=== PATIENT | female | born 1955 | race Caucasian/White ===

== ENCOUNTER 2017-10-21 10:34 | Day surgery (SDC) | payer MEDICAID ==
[2017-10-21] MEDS ORDERED: LIDOCAINE 1% MDV (10MG/ML) 20ML VIAL SQ ONE (10:35)
[2017-10-21] MEDS ORDERED: PROPOFOL 10 MG/ML VIAL IV ONE (10:35)
--- NOTE | 2017-10-22 13:10 | Operative Note ---
Dictated by Dr. Live Richardson DATE OF SURGERY: 10/21/2017 PROCEDURE: ESOPHAGOGASTRODUODENOSCOPY with biopsies. PREOPERATIVE DIAGNOSIS: Dysphagia, diarrhea, epigastric pain. POSTOPERATIVE DIAGNOSIS: Gastritis, duodenitis, and diarrhea. PHYSICIAN: Jordan Hart DO ASSISTING PHYSICIAN: Live Richardson DO ANESTHESIA: Moderate sedation conducted by [place] anesthesia team. INDICATIONS: This is a 62-year-old female with chief complaint of upper pharyngeal swallowing difficulty as well as persistent diarrhea and epigastric pain with heartburn-like symptoms after eating with minimal response to proton pump inhibitor therapy. DESCRIPTION OF PROCEDURE: The patient was seen in the preoperative area where risks and benefits of both anesthesia and the procedure were discussed in detail and consent was signed for both. The patient was then moved to endoscopic area where blood pressure was taken and a timeout was conducted confirming her name, date of , procedure to be done, and allergies. This was agreed upon. The patient was then placed in the left lateral position where she was monitored by Anesthesia with oxygenation, telemetry, and placed under moderate sedation. Once sedated, the gastroscope was lubricated and inserted through the oropharynx where a bite block was then placed. The scope was advanced through the esophagus, stomach, and into the second portion of the duodenum. Duodenal biopsies were taken in the second portion and duodenal bulb. A small duodenal erosion was appreciated with mild duodenitis and patient also had mild gastritis. Retroflexed view was conducted and fluid was suctioned out but no abnormalities appreciated. The scope was then withdrawn to evaluate the GE junction. That showed no abnormalities and the esophagus did appear tortuous but there were no signs of stricture or difficulty advancing the scope. The scope was then withdrawn from the esophagus and procedure completed. The patient tolerated the procedure very well and moved to the postoperative area. There was minimal bleeding. FINDINGS: Gastritis, duodenitis with gastric and duodenal biopsies taken. RECOMMENDATIONS: Would await pathology. Would recommend that the patient continue her PPI and if symptoms continue to persist, will recommend outpatient followup. The patient also is due for a followup colonoscopy in 1 year and will need to schedule that soon. As always, thank you for allowing me to participate in the care of your patient. CC: MARIAA Sheppard
--- NOTE | 2017-10-22 13:20 | Operative Note ---
Dictated by Dr. Live Richardson DATE OF SURGERY: 10/21/2017 PROCEDURE: ESOPHAGOGASTRODUODENOSCOPY with biopsy. PREOPERATIVE DIAGNOSIS: Difficulty in swallowing, diarrhea, and epigastric pain. POSTOPERATIVE DIAGNOSIS: Duodenitis, gastritis, and diarrhea. PHYSICIAN: Jordan Hart DO ASSISING PHYSICIAN: Live Richardson DO ANESTHESIA: Moderate sedation, monitored by [place] anesthesia team. INDICATIONS: This is a 62-year-old female presenting with persistent diarrhea and epigastric pain as well as some difficulty with swallowing noted to be in the upper pharyngeal area. The patient was set up for an EGD to evaluate these symptoms. DESCRIPTION OF PROCEDURE: The patient was seen in the preoperative area where risks and benefits of the procedure and anesthesia were discussed in detail and consent was signed for both. The patient was then brought back to the endoscopy unit where a timeout was conducted confirming her name, date of , and procedure to be done as well as allergies. Blood pressure was taken and then the patient was placed in a left lateral position. A bite block was placed and the patient was put under moderate sedation where she was monitored by the anesthesia team with ECG, blood pressure, and pulse oximetry. The patient's head was tilted and a gastroscope that was thoroughly lubricated was advanced through the oropharynx into the esophagus, stomach, and second portion of the duodenum. Gastritis was appreciated as well as duodenitis and duodenal biopsies of the second portion and bulb were taken as well as gastric biopsies of the pylorus, antrum, and gastric body. The scope was then placed in a retroflexed view that did not visualize any abnormalities, and fluid was suctioned out. The GE junction was thoroughly evaluated with no abnormalities appreciated. The patient did have a somewhat tortuous esophagus but showed no signs of structuring and no difficulty advancing or retracting the scope. The procedure was then completed. The patient tolerated the procedure very well and was brought to the postoperative area. There was minimal bleeding. FINDINGS: Gastritis, duodenitis with gastric and duodenal biopsies. RECOMMENDATIONS: I recommend that the patient continue her PPI, await biopsy results, and outpatient followup if symptoms persist. The patient also will be due for a colonoscopy in approximately 1 year and recommend that she schedule this when she can. As always, thank you for allowing me to participate in the care of your patient. CC: MARIAA Sheppard
== END 2017-10-21 14:00 | disposition home or self-care (01) ==
LOC: HOP 10:34
PROVIDERS: ATTEND Internal Medicine Gastroenterology
DX: R13.10 Dysphagia, unspecified (principal); R19.7 Diarrhea, unspecified; R10.13 Epigastric pain; K29.70 Gastritis, unspecified, without bleeding; K29.80 Duodenitis without bleeding; J44.9 Chronic obstructive pulmonary disease, unspecified; J43.9 Emphysema, unspecified

== ENCOUNTER 2018-08-10 15:23 | Observation (INO) | payer MEDICAID ==
[2018-08-10] MEDS ORDERED: METHYLPREDNISOLONE PF 125MG/VIAL IVP ONE (15:35)
[2018-08-10] MEDS ORDERED: IPRATROPIUM/ALBUTEROL (0.5MG/3MG) NEB INH ONE (15:35)
--- NOTE | 2018-08-10 15:40 | Emergency Department Record ---
History of Present Illness - General Chief Complaint: Shortness of breath Stated Complaint: ANI Time Seen by Provider: 08/10/18 15:34 Source: Patient, Family Mode of Arrival: Ambulatory Limitations: No limitations - History of Present Illness Initial Comments: 63 yo female presents not feeling well since about mid last week. She is having progressive shortness of breath, cough, fatigue, and dyspnea on exertion. She has COPD on [address] oxygen. She feels very heavy and tired. When she is active she feels like she could pass out. She saw her PCP on . An EKG and CXR were reported performed. No fever. She is a smoker currently. She feels like she has productive sputum. She has taken nitro for chest pain at times as well. MD Complaint: Cough, Shortness of breath Onset/Timin -: Days(s) Severity: Moderate Quality: Other Consistency: Constant Improves With: Nothing Worsens With: Exertion, Movement Known History Of: COPD Context: Recent URI Associated Symptoms: Cough, Orthopnia - Related Data Home Oxygen Therapy: Yes Home Oxygen Amount: 2 Liters Home Medications Medication Instructions Recorded Confirmed Last Taken Famotidine 20 mg PO DAILY 08/10/18 08/10/18 Unknown Omeprazole 20 mg PO DAILY 08/10/18 08/10/18 Unknown Prednisone 5 mg PO DAILY 08/10/18 08/10/18 Unknown Umeclidinium [place] (Incruse) 1 puff IH RESP.Q12H 08/10/18 08/10/18 Unknown [Incruse Ellipta] Venlafaxine HCl [Effexor] 75 mg PO DAILY 08/10/18 08/10/18 Unknown Allergies Allergy/AdvReac Type Severity Reaction Status Date / Time divalproex sodium Allergy DIARRHEA Verified 08/10/18 15:38 [From Depakote] hydrocodone bitartrate AdvReac VOMITING Verified 08/10/18 15:38 [From Vicodin] Travel Screening - Travel/Exposure Within Last 30 Days Have you traveled within the last 30 days?: No Review of Systems Constitutional: Reports: Malaise, Weakness. Denies: Chills, Fever Eyes: Denies: Eye discharge, Eye pain, Photophobia, Vision change ENT: Reports: Congestion Respiratory: Reports: Cough, Dyspnea, Wheezes. Denies: Hemoptysis, Stridor Cardiovascular: Reports: Dyspnea on exertion, Palpitations. Denies: Arrhythmia , Chest pain, Edema Endocrine: Reports: Fatigue Gastrointestinal: Denies: Abdominal pain, Diarrhea, Nausea, Vomiting Genitourinary: Denies: Dyspareunia, Dysuria, Urgency Musculoskeletal: Denies: Arthralgia, Back pain, Myalgia Skin: Denies: Bruising, Change in color, Rash Neurological: Denies: Confusion, Headache, Weakness Psychiatric: Denies: Anxiety Hematological/Lymphatic: Denies: Easy bleeding, Easy bruising Past Medical History - SOCIAL HISTORY Smoking Status: Current every day smoker - RESPIRATORY Hx Respiratory Disorders: Yes Hx COPD: Yes Comment:: emphysema - CARDIOVASCULAR Hx Cardio Disorders: No - NEURO Hx Neuro Disorders: Yes Hx Dizziness: Yes (since weight loss) - GI Hx GI Disorders: Yes Hx Abdominal Pain: Yes (improved with diet) Hx Hepatitis/Jaundice: Yes (Hep A as a child) Hx Nausea/Vomiting: Yes (nausea) Hx Wt Loss/Wt Gain: Yes (30 lbs over 10 years, 115 down to 86 in last year) Hx of Polyps: Yes Comment:: constant diarrhea, improved with diet, now 1-2 times per month - Hx Genitourinary Disorders: No - ENDOCRINE Hx Endocrine Disorders: No - MUSCULOSKELETAL Hx Musculoskeletal Disorders: No - PSYCH Hx Psych Problems: Yes Hx Anxiety: Yes Hx Depression: Yes - HEMATOLOGY/ONCOLOGY Hx Hematology/Oncology Disorders: Yes Hx Cancer: Yes (breast) Hx Chemotherapy: Yes Family Medical History Hx Cancer: Mother *Cancer Comment: pancreas, aunt and uncles, 6 aunts-breast cancer Hx HTN: Father Hx Seizures: Father Hx Stroke: Father Physical Exam - General General Appearance: Alert, Oriented x3, Cooperative, No acute distress Limitations: No limitations - Head Head exam: Atraumatic, Normal inspection - Eye Eye exam: Normal appearance, PERRL. negative: Conjunctival injection, Scleral icterus - ENT ENT exam: Normal exam Ear exam: Normal external inspection Nasal Exam: Normal inspection Mouth exam: Normal external inspection - Neck Neck exam: Normal inspection - Respiratory Respiratory exam: Accessory muscle use, Decreased breath sounds, Prolonged expiratory, Rhonchi, Wheezes. negative: Normal lung sounds bilaterally, Respiratory distress - Cardiovascular Cardiovascular Exam: Normal rhythm, Normal heart sounds, Tachycardia - GI/Abdominal GI/Abdominal exam: Soft. negative: Tenderness - Rectal Rectal exam: Deferred - exam: Deferred - Extremities Extremities exam: Normal inspection. negative: Pedal edema, Tenderness - Back Back exam: Denies: CVA tenderness (R), CVA tenderness (L) - Neurological Neurological exam: Alert, Oriented X3 - Psychiatric Psychiatric exam: Normal affect, Normal mood. negative: Agitated, Anxious - Skin Skin exam: Dry, Intact, Normal color, Warm Course Vital Signs 08/10/18 15:31 Temperature 98.6 F Pulse Rate 113 H Respiratory 20 Rate Blood Pressure 157/89 Pulse Ox 93 L - Reevaluation(s) Reevaluation #1: EKG #1: 15:42 Rate: 96 Rhythm: sinus [place]: R Intervals: No acute change ST segments: poor R wave progression Prior: no prior EKG 08/10/18 15:49 08/10/18 15:52 EMR reviewed The patient was seen on 08/07 with COPD and CP. She was referred to Dr Montalvo for Echo and office visit. 08/10/18 16:15 The labs were reviewed No acute changes on the CBC or CMP except glucose of 202 The Troponin is normal as is the BNP The CXR was reviewed. Hyperinflation no infiltrate. I DAJA Marin NP who accepts the patient for admission Medical Decision Making - Lab Data Result diagrams: 08/10/18 15:40 08/10/18 15:40 Disposition Disposition: Admit Clinical Impression: COPD with exacerbation, Chest pain, Dyspnea Disposition: Still a Patient at [facility] Decision to Admit: Admit from ER Decision to Admit Date: 08/10/18 Decision to Admit Time: 16:35 Condition: (2) Stable Forms: Patient Portal Access Time of Disposition: 16:35 Quality - Quality Measures Quality Measures: N/A - Blood Pressure Screening Does Patient Have Any of the Following: No Blood Pressure Classification: Pre-Hypertensive BP Reading Systolic Measurement: 157 Diastolic Measurement: 89 Screening for High Blood Pressure: < Pre-Hypertensive BP, F/U Documented > [ [id number]] Pre-Hypertensive Follow-up Interventions: Referral to alternative/primary care provider.
[2018-08-10 15:51] LABS: BASO % 0.4 % (0-6); HEMATOCRIT 48.9 % (35.0-47.0); HEMOGLOBIN 16.8 gm/dl (11.6-16.0); LYMPH % 5.2 % (16-45); MEAN CELL VOLUME 95.3 fl (81-97); MEAN CORPUSCULAR HEMOGLOBIN 32.7 pg (27-33); MEAN CORPUSCULAR HGB CONC 34.4 g/dl (32-36); MEAN PLATELET VOLUME 9.2 fl (7.4-10.4); MONO % 5.9 % (0-9); PLATELET COUNT 241 K/uL (130-400); RED BLOOD COUNT 5.13 M/uL (3.80-5.40); RED CELL DISTRIBUTION WIDTH 12.5 % (11.5-14.5); WHITE BLOOD COUNT W/O DIFF 9.1 K/uL (4.2-12.2)
[2018-08-10 16:02] LABS: PARTIAL THROMBOPLASTIN TIME 26.8 SECONDS (24.5-39.1); PROTHROMBIN TIME (PATIENT) 10.5 SECONDS (9.5-12.1)
[2018-08-10 16:05] LABS: BLOOD UREA NITROGEN 8 mg/dL (8-23); CREATININE 0.6 mg/dL (0.5-0.9); EST GLOMERULAR FILTRATION RATE > 60 mL/min; TOTAL PROTEIN 7.9 g/dL (6.6-8.7)
[2018-08-10 16:12] LABS: ALB/GLOB RATIO 1.5 (1.1-1.8); ALBUMIN 4.8 g/dL (4.0-5.0); ALKALINE PHOSPHATASE 92 U/L (35-104); ALT/SGPT 32 U/L (<33); AST/SGOT 36 U/L (10.0-35.0); GLUCOSE,RANDOM 203 mg/dL (74-109); NTpro B-NATRIURETIC PEPTIDE 80.12 pg/mL (<125)
[2018-08-10] MEDS ORDERED: ACETAMINOPHEN 325 MG TAB PO PRN (17:19)
[2018-08-10] MEDS ORDERED: ALBUTEROL SULFATE (0.083%) 2.5 MG/3 ML NEB INH PRN (17:19)
[2018-08-10] MEDS ORDERED: VENLAFAXINE ER 75 MG CAPSULE PO SCH (17:19)
[2018-08-10] MEDS ORDERED: CEFTRIAXONE SODIUM 1 GM in 0.9 % SODIUM CHLORIDE 100ML 100 ML IVPB SCH (17:19)
[2018-08-10] MEDS ORDERED: NICOTINE14 MG/24 HOUR PATCH TD SCH (17:30)
[2018-08-10] MEDS: HUMULIN R 100 UNIT/ML VIAL SQ SCH (17:53)
[2018-08-10] MEDS: METHYLPREDNISOLONE PF 125MG/VIAL IVP SCH (17:54)
[2018-08-10] MEDS: NICOTINE 21 MG/24 HOUR PATCH TD SCH (17:55)
[2018-08-10] MEDS: IPRATROPIUM/ALBUTEROL (0.5MG/3MG) NEB INH SCH ×2 (18:00→21:58)
[2018-08-10] MEDS: BUDESONIDE 0.5 MG/2 ML INH SCH (21:58)
[2018-08-10] MEDS: NYSTATIN 100,000 UNITS/ML 5ML CUP PO SCH ×2 (22:00→22:23)
[2018-08-11] MEDS: METHYLPREDNISOLONE PF 125MG/VIAL IVP SCH ×4 (00:19→22:30)
[2018-08-11] MEDS: IPRATROPIUM/ALBUTEROL (0.5MG/3MG) NEB INH SCH ×5 (05:32→21:38)
[2018-08-11] MEDS ORDERED: PANTOPRAZOLE SODIUM 40 MG TABLET PO SCH (07:00)
[2018-08-11] MEDS: GUAIFENESIN 600 MG TABCR PO SCH ×3 (07:30→22:30)
--- NOTE | 2018-08-11 08:55 | RADIOLOGY REPORT ---
EXAM: CHEST, TWO VIEWS HISTORY: PATIENT HAS COUGH AND SHORTNESS OF BREATH. TECHNIQUE: Two views of the chest are provided along with the comparison study dated 08/07/18. FINDINGS: The cardiomediastinal silhouette is within normal limits for size and contour. The ericka appear unremarkable. There is no radiographic evidence of a focal infiltrate, pleural effusion, or pneumothorax. Severe emphysematous changes are again identified. IMPRESSION: STABLE SEVERE EMPHYSEMATOUS CHANGES ARE IDENTIFIED WITHOUT RADIOGRAPHIC EVIDENCE OF AN ACUTE INTRATHORACIC PROCESS. JOB NUMBER: [id number] [facility]
[2018-08-11] MEDS: BUDESONIDE 0.5 MG/2 ML INH SCH ×2 (09:55→21:38)
[2018-08-11] MEDS ORDERED: NICOTINE 7 MG/24 HOUR PATCH TD SCH (10:00)
[2018-08-11] MEDS ORDERED: MONTELUKAST SODIUM 10MG TABLET PO SCH (10:00)
[2018-08-11] MEDS: HUMULIN R 100 UNIT/ML VIAL SQ SCH ×3 (10:11→17:54)
[2018-08-11] MEDS: ENOXAPARIN 40 MG/0.4 ML SYR SQ SCH (10:29)
[2018-08-11] MEDS: VENLAFAXINE ER 75 MG CAPSULE PO SCH (10:30)
[2018-08-11] MEDS: NYSTATIN 100,000 UNITS/ML 5ML CUP PO SCH ×4 (10:32→22:30)
[2018-08-11] MEDS: FAMOTIDINE 20MG TABLET PO SCH (10:33)
[2018-08-11] MEDS: AZITHROMYCIN 500 MG TABLET PO SCH (10:33)
--- NOTE | 2018-08-11 12:15 | History & Physical ---
History of Present Illness - Date of Service Date of Service for History & Physical: 08/11/18 - History of Present Illness Admitting Diagnosis: COPD Chest Pain History of Present Illness: Cielo Montes is a 63 y/o female presenting to ED for 1 week history of progressive shortness of breath, cough, fatigue and dyspnea. She does use home O2 2L. She saw her PCP 1 week ago for this with the addition of intermittent chest pain, did have chest x-ray and EKG in the office with no acute findings. She was set up outpatient consult for cardiology and echo but has not had her appointment yet. She is reporting feels very fatigued and body feels "heavy". Dypsnea is worse with exertion to the point she feels like she could pass out. Has taken nitro in the past for chest pain. Past medical history includes current everyday smoker, emphysema, hepatitis A as a child, colon polyps, chronic diarrhea, anxiety, depression, breast cancer. While in ED WBC normal with neutrophils 82, coags normal, CMP normal. AST 36, trop x2 <0.010. ProBNP 80.12. CXR stable, severe emphysematous changes. EKG NSR , no acute ST changes. 08/11/18: sitting in bed comfortably, reports she still feels some difficulty getting a full breath in. PCP: Amaya Austin NP Travel Screening - Travel/Exposure Within Last 30 Days Have you traveled within the last 30 days?: No - Travel/Exposure Within Last Year Have you traveled outside the [place] in the last year?: No - Additonal Travel Details Have you been exposed to anyone with a communicable illness?: No - Travel Symptoms Symptom Screening: None Review of Systems Constitutional: Reports: Malaise, Weakness. Denies: Chills, Fever Eyes: Denies: Eye discharge, Eye pain, Photophobia, Vision change ENT: Reports: Congestion Respiratory: Reports: Cough, Dyspnea, Wheezes. Denies: Hemoptysis, Stridor Cardiovascular: Reports: Dyspnea on exertion, Palpitations. Denies: Arrhythmia , Chest pain, Edema Endocrine: Reports: Fatigue Gastrointestinal: Denies: Abdominal pain, Diarrhea, Nausea, Vomiting Genitourinary: Denies: Dyspareunia, Dysuria, Urgency Musculoskeletal: Denies: Arthralgia, Back pain, Myalgia Skin: Denies: Bruising, Change in color, Rash Neurological: Denies: Confusion, Headache, Weakness Psychiatric: Denies: Anxiety Hematological/Lymphatic: Denies: Easy bleeding, Easy bruising Past Medical History - SOCIAL HISTORY Smoking Status: Current every day smoker - RESPIRATORY Hx Respiratory Disorders: Yes Hx COPD: Yes Comment:: emphysema - CARDIOVASCULAR Hx Cardio Disorders: No - NEURO Hx Neuro Disorders: Yes Hx Dizziness: Yes (since weight loss) - GI Hx GI Disorders: Yes Hx Abdominal Pain: Yes (improved with diet) Hx Hepatitis/Jaundice: Yes (Hep A as a child) Hx Nausea/Vomiting: Yes (nausea) Hx Wt Loss/Wt Gain: Yes (30 lbs over 10 years, 115 down to 86 in last year) Hx of Polyps: Yes Comment:: constant diarrhea, improved with diet, now 1-2 times per month - Hx Genitourinary Disorders: No - ENDOCRINE Hx Endocrine Disorders: No Hx Diabetes: No Hx Thyroid Disease: No - MUSCULOSKELETAL Hx Musculoskeletal Disorders: No - PSYCH Hx Psych Problems: Yes Hx Anxiety: Yes Hx Depression: Yes - HEMATOLOGY/ONCOLOGY Hx Hematology/Oncology Disorders: Yes Hx Cancer: Yes (breast) Hx Chemotherapy: Yes Family Medical History Any Significant Family History?: Yes Hx Cancer: Mother *Cancer Comment: pancreas, aunt and uncles, 6 aunts-breast cancer Hx HTN: Father Hx Seizures: Father Hx Stroke: Father H&P Meds/Allergies - Allergies Allergies: Allergies Allergy/AdvReac Type Severity Reaction Status Date / Time divalproex sodium Allergy DIARRHEA Verified 08/10/18 15:38 [From Depakote] hydrocodone bitartrate AdvReac VOMITING Verified 08/10/18 15:38 [From Vicodin] - Home Medications Home Medications Medication Instructions Recorded Confirmed Last Taken Famotidine 20 mg PO DAILY 08/10/18 08/10/18 Unknown Prednisone 5 mg PO DAILY 08/10/18 08/10/18 Unknown Umeclidinium [place] (Incruse) 1 puff IH DAILY 08/10/18 08/11/18 Unknown [Incruse Ellipta] Venlafaxine HCl [Effexor] 75 mg PO DAILY 08/10/18 08/10/18 Unknown Guaifenesin [Mucinex] 600 mg PO BID 08/11/18 08/11/18 Unknown - Active Medications Active Medications: Current Medications Acetaminophen (Tylenol 325mg) 650 mg PO Q6H PRN PRN Reason: PAIN - MILD(1-4)/FEVER Last Admin: 08/11/18 02:08 Dose: 650 mg Albuterol Sulfate (Albuterol Sulfate) 2.5 mg INH RESP.Q4H PRN PRN Reason: DIFFICULTY IN BREATHING Albuterol/Ipratropium (Duoneb) 3 ml INH RESP.Q4H.WA [facility] Last Admin: 08/11/18 09:55 Dose: 3 ml Azithromycin (Zithromax) 500 mg PO DAILY [facility] Last Admin: 08/11/18 10:33 Dose: 500 mg Budesonide (Pulmicort) 0.5 mg INH BID [facility] Last Admin: 08/11/18 09:55 Dose: 0.5 mg Enoxaparin Sodium (Lovenox) 40 mg SQ DAILY [facility] Last Admin: 08/11/18 10:29 Dose: 40 mg Ergocalciferol (Vitamin D2) 50,000 unit PO WEEKLY [facility] Famotidine (Pepcid) 20 mg PO DAILY [facility] Last Admin: 08/11/18 10:33 Dose: 20 mg Guaifenesin (Mucinex) 600 mg PO BID [facility] Last Admin: 08/11/18 07:30 Dose: 600 mg CEFTRIAXONE 1GM/50ML BAG (Ceftriaxone 1 Gm-D5w Bag) 1 gm in 50 mls @ 100 mls/ hr IVPB Q24H [facility] Insulin Human Regular (Humulin R) 1 unit SQ TIDAC [facility]; Protocol Last Admin: 08/11/18 10:11 Dose: 4 unit Methylprednisolone Sodium Succinate (Solu-Medrol) 60 mg IVP Q8HR [facility] Last Admin: 08/11/18 10:25 Dose: 60 mg Nicotine (Nicotine 21mg) 1 patch TD Q24H [facility] Last Admin: 08/10/18 17:55 Dose: 1 patch Nystatin () 5 ml PO QID [facility] Last Admin: 08/11/18 10:32 Dose: Not Given Venlafaxine HCl (Effexor Xr) 75 mg PO DAILY [facility] Last Admin: 08/11/18 10:30 Dose: 75 mg Physical Exam - Vital Signs Vital Signs: Vital Signs - Last 24 Hrs Temp Pulse Pulse Resp BP BP Pulse Ox 08/11/18 10:41 98.0 F 130/62 08/11/18 09:50 94 H 20 08/11/18 09:00 94 H 08/11/18 08:00 98.0 F 101 H 18 130/62 96 08/11/18 05:32 86 20 95 08/11/18 05:25 98.0 F 93 H 24 142/78 95 08/11/18 00:00 98.3 F 102 H 20 122/68 97 08/10/18 21:58 99 H 20 96 08/10/18 20:00 98.2 F 94 H 20 151/70 99 08/10/18 17:38 16 08/10/18 17:05 97.8 F 94 H 16 139/55 100 08/10/18 16:56 93 H 20 143/84 99 08/10/18 16:24 96 H 20 148/67 98 08/10/18 15:50 101 H 24 97 08/10/18 15:31 98.6 F 113 H 20 157/89 93 L - General General Appearance: Alert, Oriented x3, Cooperative, No acute distress Limitations: No limitations - Head Head exam: Atraumatic, Normal inspection - Eye Eye exam: Normal appearance, PERRL. negative: Conjunctival injection, Scleral icterus - ENT ENT exam: Normal exam Ear exam: Normal external inspection Nasal Exam: Normal inspection Mouth exam: Normal external inspection - Neck Neck exam: Normal inspection - Respiratory Respiratory exam: Decreased breath sounds, Prolonged expiratory, Rhonchi, Wheezes. negative: Normal lung sounds bilaterally, Accessory muscle use, Respiratory distress - Cardiovascular Cardiovascular Exam: Normal rhythm, Normal heart sounds, Tachycardia - GI/Abdominal GI/Abdominal exam: Soft. negative: Tenderness - Rectal Rectal exam: Deferred - exam: Deferred - Extremities Extremities exam: Normal inspection. negative: Pedal edema, Tenderness - Back Back exam: Denies: CVA tenderness (R), CVA tenderness (L) - Neurological Neurological exam: Alert, Oriented X3 - Psychiatric Psychiatric exam: Normal affect, Normal mood. negative: Agitated, Anxious - Skin Skin exam: Dry, Intact, Normal color, Warm Results - Labs Result Diagrams: 08/10/18 15:40 08/10/18 15:40 Labs Last 24 Hours: Laboratory Results - last 24 hr 08/10/18 08/10/18 08/10/18 15:40 15:40 15:40 WBC 9.1 RBC 5.13 Hgb 16.8 H Hct 48.9 H MCV 95.3 MCH 32.7 MCHC 34.4 RDW 12.5 Plt Count 241 MPV 9.2 Neutrophils % 82.0 H Band Neutrophils % 1.0 Lymphocytes % 5.2 L Monocytes % 5.9 Eosinophils % 0.0 Basophils % 0.4 Lymphocytes 8.0 L Monocytes 6.0 Basophils 1.0 Eosinophil Count 2.0 PT 10.5 INR 1.0 APTT 26.8 Sodium 139 Potassium 4.4 Chloride 99 Carbon Dioxide 29.0 Anion Gap 11.0 BUN 8 Creatinine 0.6 Estimated GFR > 60 POC Glucose Random Glucose 203 H Calcium 9.8 Total Bilirubin 0.30 AST 36 H ALT 32 Alkaline Phosphatase 92 Troponin T < 0.010 NT-Pro-B Natriuret Pep 80.12 Total Protein 7.9 Albumin 4.8 Globulin 3.1 Albumin/Globulin Ratio 1.5 08/10/18 08/10/18 08/11/18 21:50 22:25 08:55 WBC RBC Hgb Hct MCV MCH MCHC RDW Plt Count MPV Neutrophils % Band Neutrophils % Lymphocytes % Monocytes % Eosinophils % Basophils % Lymphocytes Monocytes Basophils Eosinophil Count PT INR APTT Sodium Potassium Chloride Carbon Dioxide Anion Gap BUN Creatinine Estimated GFR POC Glucose 173 H 242 H Random Glucose Calcium Total Bilirubin AST ALT Alkaline Phosphatase Troponin T < 0.010 NT-Pro-B Natriuret Pep Total Protein Albumin Globulin Albumin/Globulin Ratio VTE H&P Assessment - Risk for VTE Risk for VTE: Yes Risk Level: Low Risk Assessment Date: 08/11/18 Risk Assessment Time: 12:15 VTE Orders Placed or Will Be Placed: Yes Plan - Detailed Diagnosis and Plan (1) COPD with exacerbation Current Visit: Yes Status: Acute Base Code: J44.1 - CHRONIC OBSTRUCTIVE PULMONARY DISEASE W (ACUTE) EXACERBATION Comment: 08/11/18 - Does use home O2 at 2L - CBC normal WBC, elevated neutrophil 82 - CMP normal - Troponin X2 <0.010 - Telemetry - Albuterol 2.5mg q2hr PRN - Duoneb Q4hr [place] - Rocephin 1GM BID - Azithromycin 500mg QD - Pulmicort 0.5mg BID (2) Chest pain Current Visit: Yes Status: Acute Base Code: R07.9 - CHEST PAIN, UNSPECIFIED Comment: 08/11/18 - Troponin X2 <0.010 - Echo and cardiology consult today - EKG in ED with no acute ST changes (3) DVT prophylaxis Current Visit: Yes Status: Acute Base Code: [id number] - Comment: 08/11/18 - Lovenox 40mg QD (4) Full code status Current Visit: Yes Status: Acute Base Code: Z78.9 - OTHER SPECIFIED HEALTH STATUS Comment: 08/11/18
[2018-08-11] MEDS ORDERED: NITROGLYCERIN 0.4MG SL TABLET #25 BTL SL PRN (12:21)
[2018-08-11] MEDS ORDERED: CEFTRIAXONE 1GM/50ML BAG 1 GM/50 ML BAG IVPB SCH (17:00)
[2018-08-11] MEDS: NICOTINE 21 MG/24 HOUR PATCH TD SCH (17:23)
[2018-08-12] MEDS: IPRATROPIUM/ALBUTEROL (0.5MG/3MG) NEB INH SCH ×2 (05:35→10:18)
[2018-08-12] MEDS: METHYLPREDNISOLONE PF 125MG/VIAL IVP SCH (06:48)
--- NOTE | 2018-08-12 07:36 | Discharge Note ---
VTE H&P Assessment - Risk for VTE Risk for VTE: Yes Risk Level: Low Risk Assessment Date: 08/11/18 Risk Assessment Time: 12:15 VTE Orders Placed or Will Be Placed: Yes Discharge Medications - Discharge Medications Prescriptions: Azithromycin [Zithromax] 500 mg PO DAILY #7 tab Cephalexin [Keflex] 500 mg PO QID #40 cap Guaifenesin [Mucinex] 600 mg PO BID #30 tabcr Prednisone [Prednisone 10Mg] 10 mg PO ASDIR #30 tab Home Medications: Ambulatory Orders Famotidine 20 mg PO DAILY 08/10/18 [Last Taken Unknown] Guaifenesin [Mucinex] 600 mg PO BID 08/11/18 [Last Taken Unknown] Acetaminophen [Tylenol 325Mg] 650 mg PO Q6H PRN tablet 08/12/18 [Last Taken Unknown] Azithromycin [Zithromax] 500 mg PO DAILY #7 tab 08/12/18 [Last Taken Unknown] Cephalexin [Keflex] 500 mg PO QID #40 cap 08/12/18 [Last Taken Unknown] Guaifenesin [Mucinex] 600 mg PO BID #30 tabcr 08/12/18 [Last Taken Unknown] Nicotine [Nicotine 21Mg] 1 patch TD Q24H patch 08/12/18 [Last Taken Unknown] Prednisone [Prednisone 10Mg] 10 mg PO ASDIR #30 tab 08/12/18 [Last Taken Unknown ] Discharge Note - Date Date of Discharge Note: 08/12/18 Disposition: Home, Self-Care Condition: (2) Stable Instructions: COPD (Chronic Obstructive Pulmonary Disease) (DC) Additional Instructions: follow up with Dr. Radha Austin in 3 to 7 days keep appointment with outpatient stress test stay off cigs continue oxygen at 2 liters per minute Prescriptions: Azithromycin [Zithromax] 500 mg PO DAILY #7 tab Cephalexin [Keflex] 500 mg PO QID #40 cap Guaifenesin [Mucinex] 600 mg PO BID #30 tabcr Prednisone [Prednisone 10Mg] 10 mg PO ASDIR #30 tab Referrals: Amaya Holt, N.P. [Primary Care Provider] - Forms: Patient Portal Access Activity at Discharge: Increase Activity as Tolerated
[2018-08-12] MEDS: HUMULIN R 100 UNIT/ML VIAL SQ SCH (08:15)
[2018-08-12] MEDS: BUDESONIDE 0.5 MG/2 ML INH SCH (10:18)
[2018-08-12] MEDS: VENLAFAXINE ER 75 MG CAPSULE PO SCH (10:36)
[2018-08-12] MEDS: AZITHROMYCIN 500 MG TABLET PO SCH (10:36)
[2018-08-12] MEDS: FAMOTIDINE 20MG TABLET PO SCH (10:36)
[2018-08-12] MEDS: NYSTATIN 100,000 UNITS/ML 5ML CUP PO SCH (10:37)
[2018-08-12] MEDS: ENOXAPARIN 40 MG/0.4 ML SYR SQ SCH (10:37)
[2018-08-12] MEDS: GUAIFENESIN 600 MG TABCR PO SCH (10:37)
--- NOTE | 2018-08-12 12:44 | Cardiology Consult ---
DATE OF CONSULTATION: 08/11/2018 HISTORY OF PRESENT ILLNESS: The patient is a 63-year-old female with past medical history of COPD and chronic respiratory failure on 2L of home oxygen as well as tobacco abuse. She reports smoking 1 pack per day for the last 50 years. She has no known history of CAD, hypertension, hyperlipidemia, diabetes, or arrhythmia. She reports no significant family history of CAD. She states that she had a satisfactory stress test in the last 5 years but does not currently follow with a greenskeeper supervisor. She presented to [facility] with complaint of shortness of breath, cough, fatigue, and chills for the last couple of weeks. She has been diagnosed with a COPD exacerbation and has been appropriately started on antibiotics, steroids, and breathing treatments. She reports at least 2 admissions for pneumonia in the last 4 months. The patient states that even before feeling ill, these past couple of weeks she was experiencing complaints of chest pain and shortness of breath with exertion. She had been referred to a greenskeeper supervisor by her PCP but had not yet made it to that appointment. She had an echocardiogram today which demonstrated preserved LVEF of 60% to 65% with grade 1 diastolic dysfunction, aortic valve sclerosis without stenosis, trace TR, and normal RVSP. EKG on admission demonstrated sinus rhythm with poor R wave progression, biatrial enlargement, and left anterior fascicular block. Troponin has been negative x2. ProBNP was 80. She continues to feel significantly short of breath with chest pain and, therefore, Cardiology has been consulted. The chest pain occurs both with and without activity. It is not worse with deep inspiration. There are no known alleviating factors. ALLERGIES: Please see this patient's medication allergies in EMR. MEDICATIONS: She is not currently on any cardiac medications but she is on: 1. Albuterol as needed. 2. DuoNeb every four hours. 3. Azithromycin 500 mg daily. 4. Solu-Medrol 60 mg IV q.8 h. PAST MEDICAL HISTORY: COPD, chronic respiratory failure on 2L, and tobacco abuse. SOCIAL HISTORY: A [id number] tobacco use. FAMILY HISTORY: No significant family history of CAD. REVIEW OF SYSTEMS: Constitutional: Complains of fatigue, chills, fevers. No lightheadedness, dizziness, syncope. Eyes: No recent visual problems. ENMT: No ear pain, nasal congestion, sore throat. Respiratory: Shortness of breath and cough. Cardiovascular: Shortness of breath and chest pain. No palpitations, PND , orthopnea, or syncope. Peripheral Vascular: No peripheral edema or claudication. Gastrointestinal: No nausea, vomiting, diarrhea. Musculoskeletal: No back pain, neck pain, joint pain, muscle pain, decreased range of motion. Integument: No rash, pruritus, abrasions. Neurological: Alert and oriented x4. Psychiatric: No anxiety or depression. PHYSICAL EXAMINATION: VITALS: Temperature 98.0 degrees Fahrenheit, heart rate 94 beats per minute, blood pressure 130/62 mmHg, respiratory rate 16 breaths per minute, and oxygen saturation 95% on 2L O2. GENERAL: Alert and oriented. Well nourished. No acute distress. HEAD: Normocephalic and atraumatic. EENT: EOMI, PERRL. No scleral icterus, erythema. Throat free from erythema, lesions. NECK: Supple. Nontender. No carotid bruits. No JVD. RESPIRATORY: No wheezing. Decreased breath sounds bilaterally. CARDIAC : Regular rate and rhythm. No murmurs, rubs, or gallops audible. PERIPHERAL VASCULAR: No peripheral edema. No cyanosis or clubbing. Peripheral pulses 2+ and symmetric. ABDOMEN: Soft, nontender, nondistended. Normal bowel sounds. SKIN : Warm, dry, and pink. No rashes or lesions. MUSCULOSKELETAL: Normal gait. NEUROLOGIC: Awake, alert, and oriented x3. PSYCHIATRIC: Cooperative. Appropriate mood and affect. LABORATORY DATA: CBC is as follows: White blood cell count 9.1, hemoglobin 16.8 , hematocrit 48.9, platelets 241. BMP as follows: Sodium 139, potassium 4.4, chloride 99, CO2 29, BUN 8, creatinine 0.6, random glucose 203. Troponin negative x2. ProBNP 80. IMAGING: Chest x-ray with emphysema, no acute pathology. Echocardiogram 2018 with EF 60% to 65% with grade 1 diastolic dysfunction, trace TR, normal RVSP, and no wall motions abnormalities. EKG with sinus rhythm with poor R wave progression, biatrial enlargement, and left anterior fascicular block. ASSESSMENT AND PLAN: 1. Chronic obstructive pulmonary disease exacerbation. 2. Chronic respiratory failure on 2L oxygen. 3. Shortness of breath. 4. Chest pain. 5. Tobacco abuse. The patient is a 63-year-old female with past medical history of severe COPD with chronic respiratory failure on 2L home oxygen. She has a [id number] smoking history. She has no known history of coronary artery disease, hypertension, hyperlipidemia, or diabetes mellitus. No significant family history of CAD. She reports satisfactory stress test about 5 years ago. She presented to [facility] with complaint of worsening shortness of breath, cough, fatigue, fevers, and chills. Currently she is being treated with Solu-Medrol 60 mg IV q.8 h., azithromycin 500 mg p.o. daily, and DuoNeb. She was feeling better this morning but they said this afternoon she is feeling worse. She continues to have intermittent chest pain that is unrelated to physical activity. She reports that it is left-sided in nature. Her troponin has been negative x2. BNP was 80. EKG demonstrated sinus rhythm with poor R wave progression, left anterior fascicular block, and biatrial enlargement but no acute ST- or T-wave changes. Echocardiogram today demonstrated preserved LVEF of 60% to 65% with grade 1 diastolic dysfunction, no wall motions abnormalities, trace TR, and normal RVSP. At this time, it is likely that her symptoms are mainly from her COPD exacerbation. However, given her risk factors for CAD and her symptoms of chest pain and shortness of breath, we cannot rule out CAD. [facility] or, if she is stable for discharge prior to then, we can bring her back as an outpatient on for the stress test. She will then need to follow up with Cardiology as an outpatient. SADE
--- NOTE | 2018-08-12 14:50 | Discharge Summary ---
DATE: 08/12/2018 at 7:40 a.m. DISCHARGE DIAGNOSES: 1. Acute bronchitis. 2. Chronic obstructive pulmonary disease. 3. Hypoxia requiring home oxygen at 2L/min nasal cannula. 4. Rule out coronary artery disease. ATTENDING PHYSICIAN: Tanner Rod DO REASON FOR HOSPITALIZATION: This 63-year-old female progressively got more short of breath and coughing over the last 3 days to a week. She was seen by Amaya Holt NP, started on outpatient azithromycin but got worse. Was put in the hospital for IV Rocephin, oral azithromycin, and IV Solu-Medrol as well as oxygen therapy and breathing treatments. She had a cardiology consult. They are setting up an outpatient stress test. They had an echocardiogram which showed normal ejection fraction. SIGNIFICANT FINDINGS: The echocardiogram showing an ejection fraction of 60% to 65%. She saw Cardiology and they are planning to do an outpatient stress test in the near future. Appointment time will be obtained by nursing. EKG with normal sinus rhythm, no acute changes. Chest x-ray revealed COPD, no acute process. White count 9100, hemoglobin 16.8. Her sugars went up a little bit with the Solu-Medrol. Troponin T was negative x3 time points. Potassium 4.4. THERAPY PROVIDED: The patient was given IV Solu-Medrol, breathing treatments, IV Rocephin, and oral azithromycin. HOSPITAL COURSE: Gradually improved. Feeling much better. She uses home oxygen 2L/min nasal cannula. CONDITION ON DISCHARGE: Much improved. DISCHARGE INSTRUCTIONS: Follow up with Amaya Holt NP, in 3-7 days. Outpatient stress test by Cardiology in the near future. Azithromycin 500 mg daily for 7 days, Keflex 500 mg 4 times a day for 10 days, prednisone taper 40 mg a day for 3 days, 30 mg a day for 3 days, 20 mg a day for 3 days, 10 mg a day for 3 days, and then back to 5 mg a day, which is her chronic use of prednisone. She is at 5 mg a day all the time. Oxygen at 2L/min nasal cannula. Continue to stay off her cigarettes. She uses nicotine patches at home. Nebulizers used at home. She uses Pulmicort twice a day, a new medication for her, and albuterol nebulization 4 times a day. She is to continue her other home medications of Mucinex 600 mg b.i.d., Effexor 75 mg daily, Pepcid 20 mg daily, Maalox p.r.n. MTDD
[2018-08-14] MEDS ORDERED: ERGOCALCIFEROL (VITAMIN D2) 50,000 UNIT CAPSULE PO SCH (10:00)
== END 2018-08-12 13:33 | disposition home or self-care (01) ==
LOC: ER 15:23 → INTOOBSV 17:03 → MEDSURG 17:03
PROVIDERS: ADMIT Internal Medicine; ATTEND Internal Medicine
DX: J44.1 Chronic obstructive pulmonary disease with (acute) exacerbation (principal); R07.9 Chest pain, unspecified; R06.02 Shortness of breath; R05 Cough; J43.9 Emphysema, unspecified; K52.9 Noninfective gastroenteritis and colitis, unspecified; Z99.81 Dependence on supplemental oxygen; F17.210 Nicotine dependence, cigarettes, uncomplicated; Z86.19 Personal history of other infectious and parasitic diseases; Z85.3 Personal history of malignant neoplasm of breast; Z90.11 Acquired absence of right breast and nipple
CPT/HCPCS: 99285 ×2; 96365; 96375; 85730; 85610; 80053; 36416 ×3; 82948 ×3; 84484; 85027; 83880; 71046; 94640 ×4; 94761 ×2; 93005; 93010; 94760; 93306; G0378 ×3; J3490; J0696; 99220; J1650; J2930